=== PATIENT | female | born 1945 | race Caucasian/White ===

== ENCOUNTER 2016-10-08 00:32 | Emergency (ER) | payer OTHER ==
[~2016-10-08] VITALS: Ht 167.6 cm; Wt 100.0 kg
[2016-10-08] MEDS ORDERED: LIDOCAINE 1%, 20ML INFIL ONE (01:00)
[2016-10-08] MEDS ORDERED: LIDOCAINE 1%, 20ML ONE (01:28)
[2016-10-08] MEDS ORDERED: ALBU8.5H3 INH (01:33)
[2016-10-08] MEDS ORDERED: PRED5TAB PO (01:33)
[2016-10-08] MEDS ORDERED: LEFL10TA PO (01:33)
[2016-10-08] MEDS ORDERED: HYDR200T PO (01:33)
[2016-10-08] MEDS ORDERED: BUDE10.22 INH (01:33)
[2016-10-08] MEDS ORDERED: RALO60TA PO (01:33)
[2016-10-08] MEDS ORDERED: PREG50CA PO ×2 (01:33→01:34)
[2016-10-08] MEDS ORDERED: LOSA1TAB16 PO (01:33)
[2016-10-08] MEDS ORDERED: HYDROcodone/APAP 5/325 TABLET PO ONE (02:30)
[2016-10-08] MEDS ORDERED: ONDANSETRON ODT 4 MG PO ONE (02:30)
[2016-10-08] MEDS ORDERED: HYDROcodone/APAP 5/325 TABLET ONE (02:35)
[2016-10-08] MEDS ORDERED: ONDANSETRON ODT 4 MG ONE (02:35)
[2016-10-08] MEDS ORDERED: BACITRACIN ZINC OINT 500U/GM, 0.9 GM ONE (03:08)
[2016-10-08 03:28] VITALS: BP 141/50
== END 2016-10-08 03:31 | disposition home or self-care (01) ==
LOC: ED 03:25
DX: S01.81XA Laceration without foreign body of other part of head, initial encounter (principal); S00.83XA Contusion of other part of head, initial encounter; G89.11 Acute pain due to trauma; M25.511 Pain in right shoulder; M25.561 Pain in right knee; I10 Essential (primary) hypertension; W01.0XXA Fall on same level from slipping, tripping and stumbling without subsequent striking against object, initial encounter; Y93.89 Activity, other specified; Y99.8 Other external cause status; Y92.89 Other specified places as the place of occurrence of the external cause
CPT/HCPCS: 12013; 70450; 73030; 73130; 73564; 99284; Q0162